=== PATIENT | male | born 1960 | race Caucasian/White ===

== ENCOUNTER → 2020-12-29 | Outpatient (CLI) | payer OTHER | LOC: CAT 11:37 | PROVIDERS: ATTEND Family Medicine | DX: Z13.6 Encounter for screening for cardiovascular disorders (principal); I25.10 Atherosclerotic heart disease of native coronary artery without angina pectoris ==

== ENCOUNTER → 2021-02-20 | Outpatient (CLI) | payer OTHER ==
[~2021-02-20] MED LIST: ASPIRIN325 PO; BENICAR20 MG PO; NEBIVOLOL HCL5 MG PO; ROSUVASTATIN CA10 MG PO
== END ==
LOC: SJCVCIMAG 11:57
PROVIDERS: ATTEND Internal Medicine Cardiovascular Disease
DX: I51.7 Cardiomegaly (principal); R94.39 Abnormal result of other cardiovascular function study; R93.1 Abnormal findings on diagnostic imaging of heart and coronary circulation; I42.9 Cardiomyopathy, unspecified; I49.3 Ventricular premature depolarization; E78.00 Pure hypercholesterolemia, unspecified; R06.02 Shortness of breath; E66.09 Other obesity due to excess calories; Z79.899 Other long term (current) drug therapy

== ENCOUNTER → 2021-03-02 | Outpatient (CLI) | payer OTHER ==
[~2021-03-02] VITALS: Ht 195.6 cm; Wt 145.1 kg
[2021-03-02 09:01] VITALS: BP 136/56
[2021-03-02 09:15] LABS: HEMATOCRIT 47.6 % (42.0-52.0); HEMOGLOBIN 15.9 gm/dL (14.0-18.0); MCH 28.3 pg (26.0-34.0); MCHC 33.4 g/dL (28.0-37.0); MCV 84.5 fL (80.0-100.0); RBC 5.63 mil/uL (4.50-6.00); RDW 13.3 % (10.5-14.5); WBC 6.3 thou/uL (4.0-11.0)
[2021-03-02 09:37] LABS: CALCIUM 8.9 mg/dL (8.5-10.1); CREATININE 0.9 mg/dL (0.7-1.3); POTASSIUM 4.4 mmol/L (3.5-5.1)
--- NOTE | 2021-03-02 17:07 | CATHLAB ---
[facility] [place] [address] INVASIVE PROCEDURE REPORT Name: CLAUDIO LOGAN Room #: REG BENJAMIN RicoLoveKevinLove#: [id number] Admission: 03/02/21 Attend Phys: Arie Howe MD, Discharge: Date of : 56 Report #: [id number] THIS REPORT FOR: cc: Scottie Angel MD, Logan F. MD Mancuso, Gerald M. MD [facility] ~ APPROVED REPORT Study performed: 03/02/2021 10:10:49 Patient Details Patient Status: Out-Patient Room #: The patient is a 60 year-old male Event Personnel Arie Howe Gaming Host, Georgia Garcia RN RN, Shavon Martinez Monitor, Violeta Kelly RTR Scrub Procedures Performed Art Access - R femoral artery* Right and Left Heart Cath w/or w/o Coronarie [id number] [facility] Aortogram Abdominal Peripheral Angio 458396 Hemostasis w/ Mynx 45481 Initial Mod Sed Same Phys/QHP Gr5y 777314 02116 Mod Sed Same Phys/QHP Ea [id number] Indication Chest pain Procedure Narrative The Right Groin^ was infiltrated with 1% Lidocaine subcutaneous anesthesia. A PINNACLE 6FR Sheath #[id number] sheath was inserted into the RFA^. Coronary angiography was performed using coronary diagnostic catheters. The right coronary system was accessed and visualized with a JR4 catheter. The left coronary system was accessed and visualized with a JL4 catheter. The left ventricle was accessed and visualized with a STR PIG catheter. Left ventriculogram was performed in 30 degree projection. There was no hematoma. MANUAL PRESSURE FOR THE VENOUS LINE. Intraoperative Conscious Sedation Sedation start time: 1057 Case end Time: 1145 Fentanyl 100 mcg Versed 2 mg Fluoro Time: 6.[address] [facility] [place] [address] INVASIVE PROCEDURE REPORT Name: DOREENCLAUDIO ARREOLA Room #: [facility] Nav#: [id number] Admission: 03/02/21 Attend Phys: Arie Howe, Discharge: Date of : 56 Report #: [id number] Dose: DAP 258265.91 cGycm2 1408 mGy Contrast Type and Amount: Omnipaque 100 ml Hemodynamics The right atrial mean pressure is 8 mmHg. The right ventricular pressure is 32/1 mmHg. The pulmonary artery pressure is 32/11 mmHg with a mean of 19 mmHg. The mean pulmonary capillary wedge pressure is 11 mmHg. The aortic pressure is 116/63 mmHg with a mean of 50 mmHg. The left ventricular pressure is 128/0 mmHg with a mean of mmHg. The left ventricular end diastolic pressure is 14 mmHg. The cardiac output using thermo method is 6.47 L/min. The cardiac index using thermo method is 2.36 L/min/m2. Conclusion #1 Successful right heart catheterization with cardiac output by thermodilution. See above hemodynamics. #2 normal left jugular size with mild global hypokinesis EF 40 to 45% range. #3 Long left main free of disease giving rise to LAD and circumflex. #4 the LAD is widely patent with mild irregularities in the mid vessel extends around the apex. There is an extensive diagonal system. #5 small circumflex OM nondominant. Patent #6 large dominant right coronary artery with mild irregularity. Extensive PDA AFSHAN system. Recommendations and plan: Continue aggressive risk factor modification. 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 Relative salt and sodium restriction. No indication for intervention. <ELECTRONICALLY SIGNED> By: Arie Howe MD, FACC 03/02/211706 06 06 Arie Howe MD, FACC /INF
--- NOTE | 2021-03-05 07:31 | EKG ---
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: FSCHWALBE : 1960 Requested By: Arie Howe Order Number: [id number] MD: James Vila Measurements Intervals [place] Rate: 56 P: 17 HI: 206 QRS: -20 QRSD: 101 T: -11 QT: 446 QTc: 431 Interpretive Statements Sinus rhythm Borderline left axis deviation Nonspecific T abnormalities, inferior leads No previous ECG available for comparison Electronically Signed On 03-05-2021 7:30:51 MEDICAL ASSISTANT SUPERVISOR by James Vila [email or web address] <ELECTRONICALLY SIGNED> By: James Vila MD, [facility] 03/05/21 0730 6 6 James Vila MD, FACC /EPI
== END | disposition home or self-care (01) ==
LOC: CATH 08:09
PROVIDERS: ATTEND Internal Medicine Cardiovascular Disease
DX: R07.9 Chest pain, unspecified (principal); I25.10 Atherosclerotic heart disease of native coronary artery without angina pectoris; R94.39 Abnormal result of other cardiovascular function study; I42.9 Cardiomyopathy, unspecified; E78.5 Hyperlipidemia, unspecified; E78.00 Pure hypercholesterolemia, unspecified; E66.01 Morbid (severe) obesity due to excess calories; Z98.890 Other specified postprocedural states; Z79.899 Other long term (current) drug therapy